=== PATIENT | female | born 1950 ===

== ENCOUNTER 2025-01-24 10:14 | Outpatient (CLI) | payer MEDICARE | END 2025-01-24 10:15 | disposition home or self-care (01) | LOC: SCSBT 10:14 | PROVIDERS: ATTEND Family Medicine | DX: Z13.820 Encounter for screening for osteoporosis (principal); Z78.0 Asymptomatic menopausal state; M81.0 Age-related osteoporosis without current pathological fracture | CPT/HCPCS: 77080 ==